=== PATIENT | female | born 1985 | race African-American/Black ===

== ENCOUNTER 2017-08-31 18:09 | Emergency (ER) | payer MEDICAID ==
[~2017-08-31] VITALS: Ht 170.2 cm; Wt 110.5 kg
[~2017-08-31 18:09] MED LIST: DICY10CA88 PO; HYDR-569 PO; TRAM50TA2 PO
[2017-08-31 18:17] VITALS: BP 133/76
[2017-08-31 19:23] LABS: URINE HCG NEGATIVE (NEG)
[2017-08-31 19:30] LABS: CLARITY,URINE CLEAR (Clear); COLOR,URINE YELLOW (Yellow); GLUCOSE, URINE NEGATIVE (Neg); KETONES,URINE NEGATIVE (Neg); LEUKOCYTE ESTERASE ,URINE TRACE (Neg); NITRITES, URINE NEGATIVE (Neg); OCCULT BLOOD,URINE MODERATE (Neg); PH,URINE 6.5 (4.8-8.0); PROTEIN,URINE NEGATIVE (Neg)
[2017-08-31 19:31] LABS: UA COLLECTION TYPE CLN CATCH MIDSTREAM
[2017-08-31 19:38] LABS: BACTERIA,URINE 2+ /HPF (Neg); MUCUS STRANDS NONE SEEN /LPF (Neg); SQUAMOUS EPITHELIAL CELL,UR MANY /LPF (FEW)
[2017-08-31 19:39] LABS: STARCH,URINE FEW /HPF (NEGATIVE)
[2017-08-31] MEDS ORDERED: orphenadrine citrate 60mg/2ml inj. IM ONE (19:50)
[2017-08-31] MEDS ORDERED: ketorolac tromethamine 15mg/ml inj. IM ONE (19:50)
[2017-08-31] MEDS ORDERED: CYCL-1 PO (19:56)
[2017-08-31] MEDS ORDERED: IBUP-1986 PO (19:56)
== END 2017-08-31 20:14 | disposition home or self-care (01) ==
LOC: ER 18:10
DX: M54.42 Lumbago with sciatica, left side (principal); I49.9 Cardiac arrhythmia, unspecified; Z95.0 Presence of cardiac pacemaker; Z98.890 Other specified postprocedural states; Z79.899 Other long term (current) drug therapy
CPT/HCPCS: 81001; 81025; 96372; 99284; J1885; J2360

== ENCOUNTER 2020-10-01 13:55 | Outpatient (CLI) | payer MEDICAID ==
[~2020-10-01 13:55] MED LIST changes: +CYCL-1 PO; +HYDR-4383 PO; -HYDR-569 PO; +IBUP-1986 PO
== END 2020-10-01 23:59 | disposition home or self-care (01) ==
LOC: RAD 13:55
PROVIDERS: ATTEND Family Medicine
DX: R22.41 Localized swelling, mass and lump, right lower limb (principal)
CPT/HCPCS: 76882

== ENCOUNTER 2023-06-15 10:00 | Outpatient (CLI) | payer MEDICAID | END 2023-06-15 23:59 | disposition home or self-care (01) | LOC: RAD 10:00 | PROVIDERS: ATTEND Physician Assistant | DX: M54.50 Low back pain, unspecified (principal) | CPT/HCPCS: 72110 ==

== ENCOUNTER 2023-09-28 15:52 | Outpatient (CLI) | payer MEDICAID | END 2023-09-28 23:59 | disposition home or self-care (01) | LOC: MRI 15:52 | PROVIDERS: ATTEND Physician Assistant | DX: M48.07 Spinal stenosis, lumbosacral region (principal); M43.27 Fusion of spine, lumbosacral region; M54.16 Radiculopathy, lumbar region | CPT/HCPCS: 72148 ==

== ENCOUNTER 2024-07-28 09:19 | Outpatient (CLI) | payer MEDICAID ==
--- NOTE | 2024-07-28 13:37 | RADIOLOGY REPORT ---
Exam: CT CT ABDOMEN PELVIS History: RIGHT UPPER QUADRANT PAIN Comparison Study: None Technique: Multidetector spiral CT of the abdomen and pelvis was performed from lung bases to pubic symphysis. Imaging was performed without IV contrast. Axial, coronal and sagittal multiplanar reform ats were obtained from the axial data set by the technologist. Radiation dose : Abdomen/Pelvis: CTDIvol 35 mGy, DLP 1843 mGy*cm. Findings: Evaluation of solid organs is limited due to lack of intravenous contrast use. Lung Bases: No acute or significant lung base finding. Normal heart size. No pleural or pericardial effusion. Liver: The liver is normal in size. No focal lesions. Gallbladder and biliary Tree: Unremarkable Spleen: Unremarkable Pancreas: The pancreas is grossly normal in appearance. Adrenal Glands: Unremarkable Kidneys: Kidneys are grossly normal without calculi or hydronephrosis. Bladder: Grossly unremarkable for degree of distention. Bowel: The stomach is grossly normal in appearance. Small bowel and colon are normal in caliber and d istribution. The appendix is not visualized; however, no secondary findings of acute appendicitis jac ntified. Ascites: Absent Lymphadenopathy: No mesenteric, retroperitoneal or periportal lymphadenopathy. Abdominal wall and Mesentery: Postsurgical changes in the anterior abdominal wall. Vasculature: The visualized abdominal aorta is normal in size and caliber. Evaluation of abdominal a nd pelvic vessels is limited due to lack of intravenous contrast. Pelvic Organs: The uterus is surgically absent. Musculoskeletal: Postsurgical changes in the lower lumbar spine. Multilevel degenerative disease. IMPRESSION: 1. No acute abdominal or pelvic findings. Radiation optimization: All CT scans at this facility use at least one of these dose optimization manuelito hniques: Automated exposure control mA and/or kV adjustment per patient size (includes targeted exams where dose is matched to clinical indication) or iterative reconstruction. HS:Y
== END 2024-07-28 23:59 | disposition home or self-care (01) ==
LOC: RAD 09:19
DX: R10.11 Right upper quadrant pain (principal)
CPT/HCPCS: 74176